=== PATIENT | female | born 1985 | race American Indian/Alaskan Native ===

== ENCOUNTER 2017-05-03 08:40 | Emergency (ER) | payer SELFPAY ==
[2017-05-03] MEDS ORDERED: DUONEB *Not for PRN Use IH ONE (08:59)
[2017-05-03 09:00] VITALS: BP 140/77
== END 2017-05-03 14:30 | disposition left against medical advice (07) ==
LOC: ED 08:40
DX: Z53.21 Procedure and treatment not carried out due to patient leaving prior to being seen by health care provider (principal)